=== PATIENT | female | born 1955 | race Hispanic/Latino ===

== ENCOUNTER 2022-04-02 19:05 | Inpatient (IN) | payer OTHER ==
[~2022-04-02] VITALS: Ht 157.5 cm; Wt 81.6 kg
[~2022-04-02 19:05] MED LIST: ETOMIDATE 20MG VIAL IVP ONE; ROCURONIUM BROMIDE 10MG/1ML 5ML VL IV ONE
[2022-04-02 19:40] VITALS: BP 113/49
[2022-04-02] MEDS ORDERED: AMLO-257 PO (20:39)
[2022-04-02] MEDS ORDERED: LISI40TA9 PO (20:39)
[2022-04-02] MEDS ORDERED: INSU100I47 SQ (20:39)
[2022-04-02] MEDS ORDERED: ATOR40TA71 PO (20:39)
[2022-04-02] MEDS ORDERED: LEVO112T7 PO (20:39)
[2022-04-02] MEDS ORDERED: METO25TA6 PO (20:39)
[2022-04-02] MEDS ORDERED: ASPI-1197 PO (20:39)
[2022-04-02] MEDS ORDERED: PANT40TA54 PO (20:39)
[2022-04-02] MEDS ORDERED: ACET325C6 PO (20:39)
[2022-04-02] MEDS ORDERED: FURO20TA4 PO (20:39)
[2022-04-02] MEDS ORDERED: CLOP-31 PO (20:39)
[2022-04-02] MEDS ORDERED: HYDR20VI16 IV (20:39)
[2022-04-02] MEDS ORDERED: IPRATROPIUM 0.5 MG/2.5 ML INH IH PRN (22:00)
[2022-04-02] MEDS ORDERED: TEMAZEPAM 15 MG CAPSULE PO PRN (22:00)
[2022-04-02] MEDS ORDERED: ONDANSETRON 4MG INJ IVP PRN (22:00)
[2022-04-02] MEDS ORDERED: DOCUSATE SODIUM 100 MG CAP PO PRN (22:00)
[2022-04-02] MEDS ORDERED: ACETAMINOPHEN 650 MG SUPPOSITORY RC PRN (22:00)
[2022-04-02] MEDS ORDERED: HYDRALAZINE 20MG/ML VIAL IV PRN (22:00)
[2022-04-02] MEDS ORDERED: LACTULOSE 20 GM/30 ML UDCUP PO PRN (22:00)
[2022-04-02] MEDS ORDERED: ACETAMINOPHEN 325 MG TAB PO PRN (22:00)
[2022-04-02] MEDS ORDERED: CLONIDINE HCL 0.1 MG TABLET PO PRN (22:00)
[2022-04-02] MEDS ORDERED: ALBUTEROL 0.083% 2.5 MG/3 ML INH IH PRN (22:00)
[2022-04-02 23:25] VITALS: BP 102/50
[2022-04-03] VITALS (7 sets, daily range): BP systolic 114–143; BP diastolic 57–80
[2022-04-03 02:12] LABS: BASOPHILS % (AUTO) 0.5 % (0.0-5.0); EOSINOPHILS % (AUTO) 6.4 % (0.0-8.0); HEMATOCRIT 23.4 % (36-48); LYMPHOCYTES % (AUTO) 26.1 % (21.0-51.0); MEAN CORPUSCULAR HEMOGLOBIN 30.4 pg (27.0-33.0); MEAN CORPUSCULAR HGB CONC 33.8 g/dL (32.0-36.0); MONOCYTES % (AUTO) 9.5 % (3.0-13.0); NEUTROPHILS % (AUTO) 57.2 % (40.0-77.0); PLATELET COUNT (AUTO) 176 K/uL (130-400); WHITE BLOOD COUNT (AUTO) 7.8 K/uL (4.8-10.8)
[2022-04-03 02:23] LABS: INR 0.94 (0.85-1.15); PROTHROMBIN TIME 10.3 SEC (9.6-11.6)
[2022-04-03 02:26] LABS: MAGNESIUM 1.7 mg/dL (1.80-2.40); PHOSPHORUS 3.6 mg/dL (2.5-4.9); POTASSIUM 3.7 mmol/L (3.5-5.1)
[2022-04-03 02:41] LABS: % IRON SATURATION 13.6 % (22-44)
[2022-04-03] MEDS ORDERED: LACTATED RINGERS 1000ML 1,000 ML IV SCH (03:00)
[2022-04-03] MEDS ORDERED: NITROGLYCERIN 0.4 MG SL TAB SL PRN (03:00)
[2022-04-03] MEDS ORDERED: POTASSIUM CHLORIDE 10MEQ/100ML 100 ML IV PRN (03:00)
[2022-04-03] MEDS ORDERED: DEXTROSE 50%-WATER 50 ML DISP.SYRIN IV PRN (03:00)
[2022-04-03] MEDS ORDERED: MAGNESIUM 2GM PREMIX 50ML 50 ML IV PRN ×3 (03:00→07:00)
[2022-04-03] MEDS ORDERED: LIDOCAINE HCL-MPF 1% 2ML VIAL IV PRN (03:00)
[2022-04-03] MEDS ORDERED: GLUCAGON 1MG KIT 1 MG ML IM PRN (03:00)
[2022-04-03] MEDS ORDERED: LACTATED RINGERS 1000ML 1,000 ML IV ONE (04:07)
[2022-04-03] MEDS: INSULIN HUMULIN R 100 UNIT/ML 3ML SQ SCH ×4 (06:00→23:35)
[2022-04-03] MEDS ORDERED: POTASSIUM CHLORIDE 10% ELIXIR 20 MEQ/15 ML UDCUP PO PRN (07:00)
[2022-04-03] MEDS ORDERED: POTASSIUM CHLORIDE 20MEQ/100ML 100 ML IV PRN (07:00)
[2022-04-03] MEDS ORDERED: KCL 20 MEQ ERTAB PO PRN (07:00)
[2022-04-03 07:18] LABS: HEMOGLOBIN A1C 5.5 % (4.0-6.0)
[2022-04-03 07:20] LABS: CHOLESTEROL 117 mg/dL (<200); HDL CHOLESTEROL 34 mg/dL (35-85); LDL DIRECT 61 mg/dL (0-99); TRIGLYCERIDES 122 mg/dL (30-200)
[2022-04-03] MEDS ORDERED: PANTOPRAZOLE 40 MG/VIAL IVP SCH (09:00)
[2022-04-03] MEDS ORDERED: FAMOTIDINE 20MG VIAL IV SCH (09:00)
[2022-04-03] MEDS ORDERED: IRON SUCROSE COMPLEX 200 MG in 0.9%NACL 50ML 50 ML IV SCH (09:00)
[2022-04-03] MEDS: IRON SUCROSE COMPLEX 100 MG/5 ML VIAL IVP SCH (09:47)
[2022-04-03 15:20] LABS: ABG BASE EXCESS 4.3 mmol/L (-2.0-3.0); ABG OXYGEN SATURATION 97.6 % (95.0-99.0); ABG PCO2 38 mmHg (32-45)
[2022-04-03] MEDS: PANTOPRAZOLE 40 MG/VIAL IVP SCH (20:50)
[2022-04-04] VITALS (16 sets, daily range): BP systolic 94–161; BP diastolic 43–92
[2022-04-04 03:33] LABS: HEMATOCRIT 24.2 % (36-48); MEAN CORPUSCULAR HGB CONC 33.1 g/dL (32.0-36.0); MEAN CORPUSCULAR VOLUME 90.6 fL (79-99); RED BLOOD CELL COUNT(AUTO) 2.67 MIL/uL (4.00-5.50); RED CELL DISTRIBUTION WIDTH 15.2 % (11.0-15.5); WHITE BLOOD COUNT (AUTO) 5.4 K/uL (4.8-10.8)
[2022-04-04 03:43] LABS: POTASSIUM 3.3 mmol/L (3.5-5.1)
[2022-04-04 03:47] LABS: ALBUMIN 2.8 g/dL (3.5-5.0); INR 0.98 (0.85-1.15); MAGNESIUM 1.9 mg/dL (1.80-2.40); PROTHROMBIN TIME 10.7 SEC (9.6-11.6)
[2022-04-04 03:48] LABS: PARTIAL THROMBOPLASTIN TIME 26.7 SEC (26.3-35.5)
[2022-04-04] MEDS: INSULIN HUMULIN R 100 UNIT/ML 3ML SQ SCH ×2 (06:00→12:00)
[2022-04-04] MEDS ORDERED: METOPROLOL TARTRATE 25 MG TAB PO SCH (08:00)
[2022-04-04] MEDS: PANTOPRAZOLE 40 MG/VIAL IVP SCH (09:48)
[2022-04-04] MEDS: IRON SUCROSE COMPLEX 100 MG/5 ML VIAL IVP SCH (09:48)
[2022-04-04] MEDS ORDERED: CEFAZOLIN SODIUM 1 GM VIAL IVP SCH (14:00)
[2022-04-04] MEDS ORDERED: CEFAZOLIN SODIUM 1 GM VIAL ONE (14:28)
[2022-04-04] MEDS ORDERED: PAPAVERINE HCL 30 MG/ML 2ML VIAL ONE (14:29)
[2022-04-04] MEDS ORDERED: EPINEPHRINE PF 1MG (1:1,000) 10 MG in 0.9% NACL 250ML 240 ML IV PRN ×2 (15:30→18:30)
[2022-04-04] MEDS ORDERED: AMINOCAPROIC ACID 5,000MG VIAL 15,000 MG in 0.9% NACL 500ML IV.SOLN 420 ML IV PRN (15:30)
[2022-04-04] MEDS ORDERED: NOREPINEPHRINE BITARTRATE 8 MG in DEXTROSE 5%-WATER 250 ML IV PRN (15:30)
[2022-04-04] MEDS ORDERED: NOREPINEPHRIN 8MG/250ML NS PMX 250 ML IV PRN (16:00)
[2022-04-04] MEDS ORDERED: HEPARIN 10,000 UNIT/10ML (1,000 UNIT/ML) VIAL ONE ×2 (16:12→20:23)
[2022-04-04] MEDS ORDERED: NOREPINEPHRINE BITARTRATE 1 MG/1 ML ML IV ONE (16:12)
[2022-04-04] MEDS ORDERED: SODIUM BICARB 50MEQ 50ML VIAL 150 ML ONE (16:12)
[2022-04-04] MEDS ORDERED: PROPOFOL 10 MG/ML 20ML VIAL IV ONE (16:12)
[2022-04-04] MEDS ORDERED: EPINEPHRINE PF 1MG (1:1,000) 1 MG/ML AMP ONE (16:12)
[2022-04-04] MEDS ORDERED: PROTAMINE SULFATE 10 MG/ML 25ML VIAL IV ONE ×2 (16:12→20:52)
[2022-04-04] MEDS ORDERED: FENTANYL CITRATE PF 50 MCG/1 ML 20ML VIAL IJ ONE (16:12)
[2022-04-04] MEDS ORDERED: ESMOLOL HCL 10 MG/ML 10 ML VIAL ONE (16:12)
[2022-04-04] MEDS ORDERED: MIDAZOLAM HCL 1 MG/ML 2ML VIAL ONE (16:12)
[2022-04-04] MEDS ORDERED: LIDOCAINE PF 100MG/5ML (2%) SYRINGE 5ML ONE (16:12)
[2022-04-04] MEDS ORDERED: AMINOCAPROIC ACID 5,000MG VIAL ONE (16:12)
[2022-04-04] MEDS ORDERED: ROCURONIUM 10MG/1ML SYR 10 MG/ML ML ONE (16:13)
[2022-04-04] MEDS ORDERED: KETAMINE 50MG/ML SYRINGE 50 MG/ML DISP.SYRIN IV ONE (16:14)
[2022-04-04] MEDS ORDERED: NITROGLYCERIN 50MG/D5W 250ML 1 BOT ONE (16:22)
[2022-04-04] MEDS ORDERED: INSULIN REGULAR, HUMAN 3ML 100 UNIT in 0.9%NACL 100ML 99 ML IV SCH ×2 (18:30)
[2022-04-04] MEDS ORDERED: 0.9% NACL 500ML IV.SOLN 500 ML IV SCH (18:30)
[2022-04-04] MEDS ORDERED: ALBUMIN (HUMAN) 5% 250 ML IV PRN (18:30)
[2022-04-04] MEDS ORDERED: 0.9%NACL 1000ML 1,000 ML IV SCH (18:30)
[2022-04-04] MEDS ORDERED: POTASSIUM PHOS 15 mMOL+NS250ML 250 ML IV PRN (18:30)
[2022-04-04] MEDS ORDERED: AMINOCAPROIC ACID 5,000MG VIAL 15,000 MG in 0.9% NACL 250ML 250 ML IV SCH (18:30)
[2022-04-04] MEDS ORDERED: ONDANSETRON 4MG INJ IV PRN (18:30)
[2022-04-04] MEDS ORDERED: MORPHINE 2 MG SYG IV PRN ×2 (18:30)
[2022-04-04] MEDS ORDERED: ACETAMINOPHEN 650 MG SUPPOSITORY RC PRN (18:30)
[2022-04-04] MEDS ORDERED: NITROGLYCERIN 50MG/D5W 250ML 250 BOT IV SCH (18:30)
[2022-04-04] MEDS ORDERED: 0.9%NACL 10ML VIAL IVP PRN (18:30)
[2022-04-04] MEDS ORDERED: PROPOFOL 1000 MG/100 ML 100 ML IV PRN (18:30)
[2022-04-04] MEDS ORDERED: NOREPINEPHRIN 4MG/NS 250ML 250 ML IV PRN (18:30)
[2022-04-04] MEDS ORDERED: MAGNESIUM 2GM PREMIX 50ML 50 ML IV PRN (18:30)
[2022-04-04] MEDS ORDERED: DEXTROSE 50%-WATER 50 ML DISP.SYRIN IV PRN (18:30)
[2022-04-04] MEDS ORDERED: ACETAMINOPHEN 325 MG TAB PO PRN (18:30)
[2022-04-04] MEDS ORDERED: GLUCAGON 1MG KIT 1 MG ML IM PRN (18:30)
[2022-04-04] MEDS ORDERED: TRAMADOL HCL 50 MG TABLET PO PRN ×2 (18:30)
[2022-04-04 18:47] LABS: ABG BASE EXCESS -0.8 mmol/L (-2.0-3.0); ABG HCO3 23.2 mmol/L (21.0-28.0); ABG OXYGEN SATURATION 99.7 % (95.0-99.0); ABG PCO2 36 mmHg (32-45)
[2022-04-04] MEDS ORDERED: ASPIRIN 81MG CHEW TAB NG ONE (21:00)
[2022-04-04 21:05] LABS: ABG BASE EXCESS -6.7 mmol/L (-2.0-3.0); ABG HCO3 18.1 mmol/L (21.0-28.0); ABG OXYGEN SATURATION 99.1 % (95.0-99.0); ABG PCO2 33 mmHg (32-45)
[2022-04-04 21:45] LABS: MEAN CORPUSCULAR HEMOGLOBIN 29.8 pg (27.0-33.0); MEAN CORPUSCULAR HGB CONC 32.8 g/dL (32.0-36.0); MEAN CORPUSCULAR VOLUME 90.8 fL (79-99); NUCLEATED RED BLOOD CELLS 0.1 % (0.0-0.19); RED BLOOD CELL COUNT(AUTO) 2.18 MIL/uL (4.00-5.50); RED CELL DISTRIBUTION WIDTH 15.5 % (11.0-15.5); WHITE BLOOD COUNT (AUTO) 21.4 K/uL (4.8-10.8)
[2022-04-04 21:56] LABS: INR 1.17 (0.85-1.15); PROTHROMBIN TIME 12.6 SEC (9.6-11.6)
[2022-04-04 21:57] LABS: PARTIAL THROMBOPLASTIN TIME 27.3 SEC (26.3-35.5)
[2022-04-04 22:06] LABS: ABG BASE EXCESS -0.8 mmol/L (-2.0-3.0); ABG HCO3 23.5 mmol/L (21.0-28.0); ABG PCO2 37 mmHg (32-45)
[2022-04-04 22:12] LABS: MAGNESIUM 1.8 mg/dL (1.80-2.40); PHOSPHORUS 3.6 mg/dL (2.5-4.9); POTASSIUM 3.3 mmol/L (3.5-5.1)
[2022-04-04 22:21] LABS: HEMATOCRIT 19.8 % (36-48)
[2022-04-04] MEDS: POTASSIUM CHLORIDE 20MEQ/100ML 100 ML IV PRN ×2 (22:31→23:16)
[2022-04-04] MEDS: SODIUM BICARB 50MEQ 50ML VIAL IV PRN ×3 (22:34→23:40)
[2022-04-04] MEDS: ATORVASTATIN 40 MG TABLET PO SCH (23:02)
[2022-04-04] MEDS: CEFAZOLIN SODIUM 1 GM VIAL IV SCH (23:02)
[2022-04-04 23:28] LABS: ABG BASE EXCESS -2.5 mmol/L (-2.0-3.0); ABG HCO3 21.4 mmol/L (21.0-28.0); ABG OXYGEN SATURATION 97.8 % (95.0-99.0); ABG PCO2 33 mmHg (32-45)
[2022-04-05] VITALS (107 sets, daily range): BP systolic 79–231; BP diastolic 30–172
[2022-04-05 00:26] LABS: ABG HCO3 24.3 mmol/L (21.0-28.0); ABG OXYGEN SATURATION 97.3 % (95.0-99.0); ABG PCO2 43 mmHg (32-45)
[2022-04-05] MEDS: POTASSIUM CHLORIDE 20MEQ/100ML 100 ML IV PRN ×5 (00:30→09:55)
[2022-04-05] MEDS: CALCIUM GLUC 1GM 1 GM in 0.9%NACL 50ML 50 ML IV PRN ×2 (00:30→05:54)
[2022-04-05] MEDS: SODIUM BICARB 50MEQ 50ML VIAL IV PRN ×3 (00:30→01:45)
[2022-04-05 01:36] LABS: ABG BASE EXCESS -2.5 mmol/L (-2.0-3.0); ABG HCO3 23.1 mmol/L (21.0-28.0); ABG OXYGEN SATURATION 96.9 % (95.0-99.0); ABG PCO2 43 mmHg (32-45)
[2022-04-05] MEDS: CEFAZOLIN SODIUM 1 GM VIAL IV SCH ×3 (02:04→14:44)
[2022-04-05 02:48] LABS: ABG HCO3 26.1 mmol/L (21.0-28.0); ABG OXYGEN SATURATION 97.8 % (95.0-99.0); ABG PCO2 39 mmHg (32-45)
[2022-04-05 03:17] LABS: ABG BASE EXCESS -2.1 mmol/L (-2.0-3.0); ABG HCO3 26.9 mmol/L (21.0-28.0); ABG OXYGEN SATURATION 99.1 % (95.0-99.0); ABG PCO2 71 mmHg (32-45)
[2022-04-05] MEDS ORDERED: RACEPINEPHRINE HCL 2.25% 0.5 ML NEB SOLN ONE (03:19)
[2022-04-05] MEDS ORDERED: SODIUM CHLORIDE 3% FOR INHALATION 4 ML/AMP VIAL.NEB IH ONE (03:19)
[2022-04-05] MEDS ORDERED: DEXMEDETOMIDINE 400MCG/NS100ML IV ONE (03:29)
[2022-04-05 03:43] LABS: ABG HCO3 27.5 mmol/L (21.0-28.0); ABG OXYGEN SATURATION 98.3 % (95.0-99.0); ABG PCO2 68 mmHg (32-45)
[2022-04-05 04:08] LABS: ABG BASE EXCESS 4.8 mmol/L (-2.0-3.0); ABG HCO3 32.7 mmol/L (21.0-28.0); ABG PCO2 68 mmHg (32-45)
[2022-04-05 04:30] LABS: ABG BASE EXCESS 0.4 mmol/L (-2.0-3.0); ABG HCO3 29.1 mmol/L (21.0-28.0); ABG OXYGEN SATURATION 97.2 % (95.0-99.0); ABG PCO2 70 mmHg (32-45)
[2022-04-05] MEDS ORDERED: DEXMEDETOMIDINE 400MCG/NS100ML IV SCH (04:30)
[2022-04-05 04:35] LABS: HEMATOCRIT 31.1 % (36-48); MEAN CORPUSCULAR HEMOGLOBIN 29.6 pg (27.0-33.0); MEAN CORPUSCULAR HGB CONC 32.5 g/dL (32.0-36.0); MEAN CORPUSCULAR VOLUME 91.2 fL (79-99); NUCLEATED RED BLOOD CELLS 0.1 % (0.0-0.19); RED BLOOD CELL COUNT(AUTO) 3.41 MIL/uL (4.00-5.50); WHITE BLOOD COUNT (AUTO) 20.3 K/uL (4.8-10.8)
[2022-04-05 04:46] LABS: CREATININE 1.2 mg/dL (0.5-1.5); INR 1.09 (0.85-1.15); MAGNESIUM 1.8 mg/dL (1.80-2.40); POTASSIUM 4.5 mmol/L (3.5-5.1); PROTHROMBIN TIME 11.8 SEC (9.6-11.6)
[2022-04-05 04:48] LABS: PARTIAL THROMBOPLASTIN TIME 24.4 SEC (26.3-35.5)
[2022-04-05 05:51] LABS: ABG BASE EXCESS 6.4 mmol/L (-2.0-3.0); ABG HCO3 26.6 mmol/L (21.0-28.0); ABG OXYGEN SATURATION 90.7 % (95.0-99.0); ABG PCO2 25 mmHg (32-45)
[2022-04-05 07:22] LABS: ABG BASE EXCESS 6.3 mmol/L (-2.0-3.0); ABG HCO3 29.1 mmol/L (21.0-28.0); ABG OXYGEN SATURATION 98.9 % (95.0-99.0); ABG PCO2 35 mmHg (32-45)
[2022-04-05] MEDS ORDERED: ASPIRIN 81MG CHEW TAB ONE (08:16)
[2022-04-05] MEDS: IRON SUCROSE COMPLEX 100 MG/5 ML VIAL IVP SCH (08:26)
[2022-04-05] MEDS: FAMOTIDINE 20MG VIAL IV SCH (08:26)
[2022-04-05] MEDS: FUROSEMIDE 20MG VIAL IV SCH ×2 (08:27→20:41)
[2022-04-05] MEDS: ASPIRIN 81 MG EC TAB PO SCH (08:27)
[2022-04-05] MEDS ORDERED: IPRATROPIUM/ALBUTEROL SULFATE 3 ML SOLUTION IH ONE (08:28)
[2022-04-05] MEDS ORDERED: SOLU-MEDROL 125MG VIAL IVP SCH (08:30)
[2022-04-05] MEDS ORDERED: IPRATROPIUM/ALBUTEROL SULFATE 3 ML SOLUTION IH SCH (08:30)
[2022-04-05 09:41] LABS: ABG BASE EXCESS 7.5 mmol/L (-2.0-3.0); ABG HCO3 31.1 mmol/L (21.0-28.0); ABG OXYGEN SATURATION 96.5 % (95.0-99.0); ABG PCO2 40 mmHg (32-45)
[2022-04-05 11:03] LABS: ABG BASE EXCESS 5.7 mmol/L (-2.0-3.0); ABG HCO3 30.3 mmol/L (21.0-28.0); ABG OXYGEN SATURATION 96.7 % (95.0-99.0); ABG PCO2 44 mmHg (32-45)
[2022-04-05] MEDS: IPRATROPIUM/ALBUTEROL SULFATE 3 ML SOLUTION IH SCH ×2 (11:10→18:29)
[2022-04-05 12:00] LABS: ABG BASE EXCESS 7.7 mmol/L (-2.0-3.0); ABG HCO3 32.2 mmol/L (21.0-28.0); ABG OXYGEN SATURATION 96.5 % (95.0-99.0); ABG PCO2 45 mmHg (32-45)
[2022-04-05 13:40] LABS: ABG BASE EXCESS 8.5 mmol/L (-2.0-3.0); ABG HCO3 33.4 mmol/L (21.0-28.0); ABG OXYGEN SATURATION 96.4 % (95.0-99.0); ABG PCO2 48 mmHg (32-45)
[2022-04-05] MEDS: SOLU-MEDROL 125MG VIAL IVP SCH ×2 (14:30→20:42)
[2022-04-05] MEDS ORDERED: DEXAMETHASONE SOD PHOSPHATE 4 MG/ML 1ML VIAL IVP ONE (14:30)
[2022-04-05 16:01] LABS: ABG BASE EXCESS 6.3 mmol/L (-2.0-3.0); ABG HCO3 30.9 mmol/L (21.0-28.0); ABG OXYGEN SATURATION 96.4 % (95.0-99.0); ABG PCO2 45 mmHg (32-45)
[2022-04-05] MEDS: ATORVASTATIN 40 MG TABLET PO SCH (20:42)
[2022-04-06] VITALS (60 sets, daily range): BP systolic 95–219; BP diastolic 30–166
[2022-04-06] MEDS: IPRATROPIUM/ALBUTEROL SULFATE 3 ML SOLUTION IH SCH ×5 (00:34→23:22)
[2022-04-06 04:21] LABS: HEMATOCRIT 27.8 % (36-48); MEAN CORPUSCULAR HEMOGLOBIN 29.8 pg (27.0-33.0); MEAN CORPUSCULAR HGB CONC 33.1 g/dL (32.0-36.0); NUCLEATED RED BLOOD CELLS 0.1 % (0.0-0.19); RED BLOOD CELL COUNT(AUTO) 3.09 MIL/uL (4.00-5.50); RED CELL DISTRIBUTION WIDTH 15.9 % (11.0-15.5); WHITE BLOOD COUNT (AUTO) 16.5 K/uL (4.8-10.8)
[2022-04-06 04:33] LABS: CREATININE 1.4 mg/dL (0.5-1.5); POTASSIUM 3.8 mmol/L (3.5-5.1)
[2022-04-06] MEDS: POTASSIUM CHLORIDE 20MEQ/100ML 100 ML IV PRN (05:09)
[2022-04-06] MEDS: SOLU-MEDROL 125MG VIAL IVP SCH ×3 (05:49→21:07)
[2022-04-06] MEDS: FAMOTIDINE 20MG VIAL IV SCH (08:23)
[2022-04-06] MEDS: ASPIRIN 81 MG EC TAB PO SCH (08:23)
[2022-04-06] MEDS: IRON SUCROSE COMPLEX 100 MG/5 ML VIAL IVP SCH (08:23)
[2022-04-06] MEDS: METOPROLOL TARTRATE 25 MG TAB PO SCH (08:23)
[2022-04-06] MEDS: FUROSEMIDE 20 MG TABLET PO SCH ×2 (08:23→17:00)
[2022-04-06 08:48] LABS: ABG BASE EXCESS 5.4 mmol/L (-2.0-3.0); ABG HCO3 29.8 mmol/L (21.0-28.0); ABG OXYGEN SATURATION 96.4 % (95.0-99.0); ABG PCO2 43 mmHg (32-45)
[2022-04-06 09:47] LABS: ABG BASE EXCESS 7.9 mmol/L (-2.0-3.0); ABG HCO3 32.4 mmol/L (21.0-28.0); ABG OXYGEN SATURATION 96.8 % (95.0-99.0); ABG PCO2 45 mmHg (32-45)
[2022-04-06] MEDS ORDERED: RACEPINEPHRINE HCL 2.25% 0.5 ML NEB SOLN ONE ×2 (11:53→21:04)
[2022-04-06] MEDS ORDERED: DEXAMETHASONE SOD PHOSPHATE 4 MG/ML 1ML VIAL ONE (12:04)
[2022-04-06 12:11] LABS: HEMATOCRIT 26.9 % (36-48)
[2022-04-06] MEDS: INSULIN HUMULIN R 100 UNIT/ML 3ML SQ SCH ×2 (16:30→21:00)
[2022-04-06] MEDS: LACTATED RINGERS 1000ML 1,000 ML IV SCH (18:34)
[2022-04-06] MEDS: ATORVASTATIN 40 MG TABLET PO SCH (21:00)
[2022-04-06] MEDS ORDERED: RACEPINEPHRINE HCL 2.25% 0.5 ML NEB SOLN NEB STA (21:13)
[2022-04-07] VITALS (25 sets, daily range): BP systolic 114–159; BP diastolic 54–126
[2022-04-07 03:54] LABS: HEMATOCRIT 23.1 % (36-48); MEAN CORPUSCULAR VOLUME 93.5 fL (79-99); NUCLEATED RED BLOOD CELLS 0.1 % (0.0-0.19); RED BLOOD CELL COUNT(AUTO) 2.47 MIL/uL (4.00-5.50); RED CELL DISTRIBUTION WIDTH 16.4 % (11.0-15.5); WHITE BLOOD COUNT (AUTO) 15.5 K/uL (4.8-10.8)
[2022-04-07 04:17] LABS: CREATININE 2.1 mg/dL (0.5-1.5)
[2022-04-07] MEDS ORDERED: RACEPINEPHRINE HCL 2.25% 0.5 ML NEB SOLN ONE (05:15)
[2022-04-07] MEDS: IPRATROPIUM/ALBUTEROL SULFATE 3 ML SOLUTION IH SCH ×4 (05:32→23:07)
[2022-04-07] MEDS: SOLU-MEDROL 125MG VIAL IVP SCH ×3 (05:41→21:25)
[2022-04-07] MEDS: INSULIN HUMULIN R 100 UNIT/ML 3ML SQ SCH ×4 (07:30→21:26)
[2022-04-07 07:40] LABS: ABG HCO3 30.2 mmol/L (21.0-28.0); ABG OXYGEN SATURATION 99.9 % (95.0-99.0); ABG PCO2 42 mmHg (32-45)
[2022-04-07] MEDS: METOPROLOL TARTRATE 25 MG TAB PO SCH ×3 (08:20→21:00)
[2022-04-07] MEDS: FAMOTIDINE 20MG VIAL IV SCH (08:40)
[2022-04-07] MEDS: IRON SUCROSE COMPLEX 100 MG/5 ML VIAL IVP SCH (08:40)
[2022-04-07] MEDS: ENOXAPARIN SODIUM 30 MG/0.3 ML SQ SCH (08:54)
[2022-04-07] MEDS: FUROSEMIDE 20 MG TABLET PO SCH (09:00)
[2022-04-07] MEDS: ASPIRIN 81 MG EC TAB PO SCH (09:00)
[2022-04-07] MEDS ORDERED: ASPIRIN 300 MG SUPPOSITORY PR SCH (09:30)
[2022-04-07] MEDS: LACTATED RINGERS 1000ML 1,000 ML IV SCH (10:41)
[2022-04-07 11:43] LABS: THYROID STIMULATING HORMONE 2.69 uIU/mL (0.36-3.74)
[2022-04-07] MEDS: RACEPINEPHRINE HCL 2.25% 0.5 ML NEB SOLN NEB PRN ×3 (12:11→21:15)
[2022-04-07] MEDS: FUROSEMIDE 20MG VIAL IV SCH ×2 (14:34→21:24)
[2022-04-07] MEDS ORDERED: DEXAMETHASONE SOD PHOSPHATE 4 MG/ML 1ML VIAL ONE (14:47)
[2022-04-07 14:56] LABS: ABG BASE EXCESS 3.3 mmol/L (-2.0-3.0); ABG OXYGEN SATURATION 99.2 % (95.0-99.0); ABG PCO2 57 mmHg (32-45)
[2022-04-07] MEDS ORDERED: DEXAMETHASONE SOD PHOSPHATE 4 MG/ML 1ML VIAL IVP STA (16:01)
[2022-04-07] MEDS ORDERED: DEXAMETHASONE SOD PHOSPHATE 4 MG/ML 1ML VIAL IVP SCH (18:00)
[2022-04-07] MEDS: DEXAMETHASONE SOD PHOSPHATE 4 MG/ML 1ML VIAL IVP SCH (20:39)
[2022-04-07] MEDS: ATORVASTATIN 40 MG TABLET PO SCH (21:00)
[2022-04-08] VITALS (34 sets, daily range): BP systolic 118–182; BP diastolic 57–106
[2022-04-08] MEDS: DEXAMETHASONE SOD PHOSPHATE 4 MG/ML 1ML VIAL IVP SCH ×5 (00:36→23:45)
[2022-04-08] MEDS: LACTATED RINGERS 1000ML 1,000 ML IV SCH ×2 (02:54→19:39)
[2022-04-08 03:56] LABS: HEMATOCRIT 24.9 % (36-48); MEAN CORPUSCULAR HEMOGLOBIN 29.3 pg (27.0-33.0); MEAN CORPUSCULAR HGB CONC 31.3 g/dL (32.0-36.0); MEAN CORPUSCULAR VOLUME 93.6 fL (79-99); NUCLEATED RED BLOOD CELLS 0.1 % (0.0-0.19); RED BLOOD CELL COUNT(AUTO) 2.66 MIL/uL (4.00-5.50); RED CELL DISTRIBUTION WIDTH 17.3 % (11.0-15.5); WHITE BLOOD COUNT (AUTO) 16.2 K/uL (4.8-10.8)
[2022-04-08 04:10] LABS: POTASSIUM 3.8 mmol/L (3.5-5.1)
[2022-04-08] MEDS: SOLU-MEDROL 125MG VIAL IVP SCH ×2 (06:23→12:44)
[2022-04-08] MEDS: IPRATROPIUM/ALBUTEROL SULFATE 3 ML SOLUTION IH SCH ×4 (06:36→23:22)
[2022-04-08] MEDS: INSULIN HUMULIN R 100 UNIT/ML 3ML SQ SCH ×4 (06:39→20:39)
[2022-04-08] MEDS: ASPIRIN 81 MG EC TAB PO SCH (07:49)
[2022-04-08] MEDS: METOPROLOL TARTRATE 25 MG TAB PO SCH ×2 (07:49→19:26)
[2022-04-08] MEDS: ENOXAPARIN SODIUM 30 MG/0.3 ML SQ SCH (07:49)
[2022-04-08] MEDS: POTASSIUM CHLORIDE 20MEQ/100ML 100 ML IV PRN (08:07)
[2022-04-08] MEDS: IRON SUCROSE COMPLEX 100 MG/5 ML VIAL IVP SCH (08:07)
[2022-04-08] MEDS: FUROSEMIDE 20MG VIAL IV SCH ×2 (08:07→20:38)
[2022-04-08] MEDS: FAMOTIDINE 20MG VIAL IV SCH (08:08)
[2022-04-08] MEDS: ASPIRIN 300 MG SUPPOSITORY PR SCH (08:09)
[2022-04-08 08:10] LABS: ABG BASE EXCESS 7.7 mmol/L (-2.0-3.0); ABG HCO3 32.2 mmol/L (21.0-28.0); ABG OXYGEN SATURATION 98.6 % (95.0-99.0); ABG PCO2 46 mmHg (32-45)
[2022-04-08] MEDS: CALCIUM GLUC 1GM 1 GM in 0.9%NACL 50ML 50 ML IV PRN (12:33)
[2022-04-08] MEDS: ATORVASTATIN 40 MG TABLET PO SCH (19:25)
[2022-04-09] VITALS (37 sets, daily range): BP systolic 101–188; BP diastolic 56–110
[2022-04-09 04:05] LABS: CREATININE 1.7 mg/dL (0.5-1.5)
[2022-04-09] MEDS: INSULIN HUMULIN R 100 UNIT/ML 3ML SQ SCH ×4 (05:47→21:18)
[2022-04-09] MEDS: DEXAMETHASONE SOD PHOSPHATE 4 MG/ML 1ML VIAL IVP SCH ×3 (06:01→17:25)
[2022-04-09] MEDS: IPRATROPIUM/ALBUTEROL SULFATE 3 ML SOLUTION IH SCH ×4 (06:30→23:16)
[2022-04-09] MEDS: ASPIRIN 81 MG EC TAB PO SCH (07:38)
[2022-04-09] MEDS: METOPROLOL TARTRATE 25 MG TAB PO SCH ×2 (07:38→21:00)
[2022-04-09] MEDS: ENOXAPARIN SODIUM 30 MG/0.3 ML SQ SCH (07:38)
[2022-04-09] MEDS: FAMOTIDINE 20MG VIAL IV SCH (07:53)
[2022-04-09] MEDS: IRON SUCROSE COMPLEX 100 MG/5 ML VIAL IVP SCH (07:54)
[2022-04-09] MEDS: ASPIRIN 300 MG SUPPOSITORY PR SCH (07:55)
[2022-04-09] MEDS: FUROSEMIDE 20MG VIAL IV SCH ×2 (08:52→21:15)
[2022-04-09] MEDS ORDERED: POLYETHYLENE GLYCOL 3350 17 GM POWD.PACK PO SCH (10:00)
[2022-04-09] MEDS ORDERED: PANTOPRAZOLE 40 MG/VIAL IVP ONE (12:00)
[2022-04-09 14:13] LABS: ABG BASE EXCESS 0.2 mmol/L (-2.0-3.0); ABG HCO3 25.1 mmol/L (21.0-28.0); ABG OXYGEN SATURATION 99.5 % (95.0-99.0); ABG PCO2 42 mmHg (32-45)
[2022-04-09] MEDS: ATORVASTATIN 40 MG TABLET PO SCH (21:00)
[2022-04-09] MEDS: PANTOPRAZOLE 40 MG/VIAL IVP SCH (21:14)
[2022-04-10] VITALS (30 sets, daily range): BP systolic 140–204; BP diastolic 61–104
[2022-04-10] MEDS: DEXAMETHASONE SOD PHOSPHATE 4 MG/ML 1ML VIAL IVP SCH ×4 (00:11→17:12)
[2022-04-10 03:37] LABS: HEMATOCRIT 24.8 % (36-48); MEAN CORPUSCULAR HEMOGLOBIN 29.5 pg (27.0-33.0); NUCLEATED RED BLOOD CELLS 0.2 % (0.0-0.19); PLATELET COUNT (AUTO) 132 K/uL (130-400); RED BLOOD CELL COUNT(AUTO) 2.61 MIL/uL (4.00-5.50); RED CELL DISTRIBUTION WIDTH 16.4 % (11.0-15.5)
[2022-04-10 03:57] LABS: CREATININE 1.5 mg/dL (0.5-1.5); POTASSIUM 3.7 mmol/L (3.5-5.1)
[2022-04-10] MEDS ORDERED: HYDRALAZINE 20MG/ML VIAL ONE (03:58)
[2022-04-10] MEDS ORDERED: HYDRALAZINE 20MG/ML VIAL IV ONE (04:00)
[2022-04-10] MEDS: INSULIN HUMULIN R 100 UNIT/ML 3ML SQ SCH ×4 (06:11→20:00)
[2022-04-10] MEDS: IPRATROPIUM/ALBUTEROL SULFATE 3 ML SOLUTION IH SCH ×4 (06:42→23:38)
[2022-04-10] MEDS: IRON SUCROSE COMPLEX 100 MG/5 ML VIAL IVP SCH (08:49)
[2022-04-10] MEDS: PANTOPRAZOLE 40 MG/VIAL IVP SCH ×2 (08:50→21:14)
[2022-04-10] MEDS: FUROSEMIDE 20MG VIAL IV SCH ×2 (08:50→21:14)
[2022-04-10] MEDS: ENOXAPARIN SODIUM 30 MG/0.3 ML SQ SCH (08:51)
[2022-04-10] MEDS: METOPROLOL TARTRATE 25 MG TAB PO SCH ×2 (09:00→21:14)
[2022-04-10] MEDS ORDERED: POLYETHYLENE GLYCOL 3350 17 GM POWD.PACK PO SCH (09:00)
[2022-04-10] MEDS: ASPIRIN 81 MG EC TAB PO SCH (09:00)
[2022-04-10] MEDS: ATORVASTATIN 40 MG TABLET PO SCH (21:14)
[2022-04-11] VITALS (8 sets, daily range): BP systolic 123–167; BP diastolic 53–89
[2022-04-11] MEDS: DEXAMETHASONE SOD PHOSPHATE 4 MG/ML 1ML VIAL IVP SCH (00:15)
[2022-04-11] MEDS: RACEPINEPHRINE HCL 2.25% 0.5 ML NEB SOLN NEB PRN (04:44)
== END 2022-04-11 05:55 | disposition short-term general hospital (02) | DRG 235 ==
LOC: OBSVTOIN 19:30 → 2AH 19:30 → INTOOBSV 19:30 → 2CV 04-04 18:14 → 2BH 04-08 16:49
PROVIDERS: ADMIT Internal Medicine Critical Care Medicine; ATTEND Thoracic Surgery (Cardiothoracic Vascular Surgery)
PROC: 30233N1 Transfusion of Nonautologous Red Blood Cells into Peripheral Vein, Percutaneous Approach (ICD-10-PCS; 2022-04-04)
PROC: 5A1945Z Respiratory Ventilation, 24-96 Consecutive Hours (ICD-10-PCS; 2022-04-04)
PROC: 0BH17EZ Insertion of Endotracheal Airway into Trachea, Via Natural or Artificial Opening (ICD-10-PCS; 2022-04-04)
PROC: 02100Z9 Bypass Coronary Artery, One Artery from Left Internal Mammary, Open Approach (ICD-10-PCS; principal; 2022-04-04 17:37)
PROC: 0212093 Bypass Coronary Artery, Three Arteries from Coronary Artery with Autologous Venous Tissue, Open Approach (ICD-10-PCS; 2022-04-04 17:37)
PROC: 06BQ4ZZ Excision of Left Saphenous Vein, Percutaneous Endoscopic Approach (ICD-10-PCS; 2022-04-04 17:37)
PROC: 5A09357 Assistance with Respiratory Ventilation, Less than 24 Consecutive Hours, Continuous Positive Airway Pressure (ICD-10-PCS; 2022-04-07)
PROC: 5A09357 Assistance with Respiratory Ventilation, Less than 24 Consecutive Hours, Continuous Positive Airway Pressure (ICD-10-PCS; 2022-04-08)
PROC: 5A09357 Assistance with Respiratory Ventilation, Less than 24 Consecutive Hours, Continuous Positive Airway Pressure (ICD-10-PCS; 2022-04-09)
PROC: 5A09357 Assistance with Respiratory Ventilation, Less than 24 Consecutive Hours, Continuous Positive Airway Pressure (ICD-10-PCS; 2022-04-10)
PROC: 5A09357 Assistance with Respiratory Ventilation, Less than 24 Consecutive Hours, Continuous Positive Airway Pressure (ICD-10-PCS; 2022-04-11)
DX: I25.10 Atherosclerotic heart disease of native coronary artery without angina pectoris (principal); G93.41 Metabolic encephalopathy; J96.01 Acute respiratory failure with hypoxia; D62 Acute posthemorrhagic anemia; N17.9 Acute kidney failure, unspecified; Z20.822 Contact with and (suspected) exposure to COVID-19; E03.9 Hypothyroidism, unspecified; E11.65 Type 2 diabetes mellitus with hyperglycemia; E66.01 Morbid (severe) obesity due to excess calories; E78.00 Pure hypercholesterolemia, unspecified; I10 Essential (primary) hypertension; J45.909 Unspecified asthma, uncomplicated; E87.70 Fluid overload, unspecified; K44.9 Diaphragmatic hernia without obstruction or gangrene; Z98.61 Coronary angioplasty status; Z95.1 Presence of aortocoronary bypass graft; Z93.0 Tracheostomy status; Z91.199 Patient's noncompliance with other medical treatment and regimen due to unspecified reason; Z87.11 Personal history of peptic ulcer disease; Z86.73 Personal history of transient ischemic attack (TIA), and cerebral infarction without residual deficits; Z79.899 Other long term (current) drug therapy; Z79.4 Long term (current) use of insulin; Z68.32 Body mass index [BMI] 32.0-32.9, adult
CPT/HCPCS: 31500; 36415; 36600; 70450; 71045; 76882; 80048; 80053; 80061; 82140; 82330; 82435; 82728; 82803; 82947; 82948; 83036; 83540; 83550; 83605; 83735; 83880; 84100; 84132; 84295; 84443; 85014; 85018; 85025; 85027; 85347; 85610; 85730; 86850; 86900; 86901; 86923; 87635; 87641; 92610; 93005; 93880; 94002; 94003; 94010; 94150; 94640; 94660; 94664; A7048; C9113; G0378; J0171; J0360; J0610; J0690; J1100; J1644; J1650; J1756; J1815; J1940; J2001; J2250; J2440; J2704; J2720; J2930; J3010; J3475; J3480; J3490; J7030; J7040; J7070; J7120; P9016